=== PATIENT | female | born 1960 | race Caucasian/White ===

== ENCOUNTER 2016-02-24 22:13 | Emergency (ER) | payer OTHER ==
[2016-02-24 22:31] VITALS: TEMP 102.8; BMI 21.4
--- NOTE | 2016-02-24 23:27 | PDOC ---
History of Present Illness - General Chief Complaint: Cold Symptoms Stated Complaint: COUGH,WEAKNESS Time Seen by Provider: 02/24/16 23:12 History Source: Patient Exam Limitations: No Limitations - History of Present Illness Timing/Duration: reports: just prior to arrival Possible Cause: Yes: no prior episodes Associated Symptoms: reports: cough, fever/chills Past History - Travel Traveled outside of the country in the last 30 days: No Close contact w/someone who was outside of country & ill: No - Past Medical History Allergies/Adverse Reactions: Allergies Allergy/AdvReac Type Severity Reaction Status Date / Time No Known Allergies Allergy Verified 02/24/16 22:27 Home Medications: Ambulatory Orders Unobtainable [Unobtainable] 02/24/16 Anemia: No Diabetes: Yes Suicide Attempt (Hx): No - Immunization History Immunization Up to Date: No - Psycho/Social/Smoking Cessation Hx Anxiety: No Suicidal Ideation: No Smoking History: Never smoked Have you smoked in the past 12 months: No Number of Cigarettes Smoked Daily: 0 Information on smoking cessation initiated: No Hx Alcohol Use: No Drug/Substance Use Hx: No Substance Use Type: None Respiratory Specific PMHX - Complaint Specific PMHX Bronchitis: No Pneumonia: No Review of Systems - Review of Systems Able to Perform ROS?: Yes Comments:: 02/24/16 23:24 CONSTITUTIONAL: Absent: fever, chills, diaphoresis, generalized weakness, malaise, loss of appetite HEENT: Absent: rhinorrhea, nasal congestion, throat pain, throat swelling, difficulty swallowing, mouth swelling, ear pain, eye pain, visual Changes CARDIOVASCULAR: Absent: chest pain, loss of consciousness, palpitations, irregular heart rate, peripheral edema RESPIRATORY: +cough Absent: CONSTITUTIONAL: +fever, chills, Absent: diaphoresis, generalized weakness, malaise, loss of appetite HEENT: Absent: rhinorrhea, nasal congestion, throat pain, throat swelling, difficulty swallowing, mouth swelling, ear pain, eye pain, visual Changes CARDIOVASCULAR: Absent: chest pain, loss of consciousness, palpitations, irregular heart rate, peripheral edema RESPIRATORY: Absent: cough, shortness of breath, dyspnea with exertion, orthopnea, wheezing, stridor, hemoptysis GASTROINTESTINAL: Absent: abdominal pain, abdominal distension, nausea, vomiting, diarrhea, constipation, melena, hematochezia GENITOURINARY: Absent: dysuria, frequency, urgency, hesitancy, hematuria, flank pain, genital pain MUSCULOSKELETAL: Absent: myalgia, arthralgia, joint swelling SKIN: Absent: rash, itching, pallor HEMATOLOGIC/IMMUNOLOGIC: Absent: easy bleeding, easy bruising, lymphadenopathy, frequent infections ENDOCRINE: Absent: unexplained weight gain, unexplained weight loss, heat intolerance, cold intolerance NEUROLOGIC: Absent: headache, focal weakness or paresthesias, dizziness, unsteady gait, seizure, mental status changes, bladder or bowel incontinence PSYCHIATRIC: Absent: anxiety, depression, suicidal or homicidal ideation, hallucinations.shortness of breath, dyspnea with exertion, orthopnea, wheezing, stridor, hemoptysis Is the patient limited Hungarian proficient: No *Physical Exam - Vital Signs Last Vital Signs Temp Pulse Resp BP Pulse Ox 102.8 F H 98 H 14 128/70 95 02/24/16 22:29 02/24/16 22:29 02/24/16 22:29 02/24/16 22:29 02/24/16 22:29 - Physical Exam Comments: 02/24/16 23:26 GENERAL: Well developed, well nourished. Awake and alert. No acute distress. HEENT: Normocephalic, atraumatic. PERRLA, EOMI. No conjunctival pallor. Sclera are non- icteric. Moist mucous membranes. Oropharynx is clear. NECK: Supple. Full ROM. No JVD. Carotid pulses 2+ and symmetric, without bruits. No thyromegaly. No lymphadenopathy. CARDIOVASCULAR: Regular rate and rhythm. No murmurs, rubs, or gallops. Distal pulses are 2+ and symmetric. PULMONARY: No evidence of respiratory distress. Lungs clear to auscultation bilaterally. No wheezing, rales or rhonchi. ABDOMINAL: Soft. Non-tender. Non-distended. No rebound or guarding. No organomegaly. Normoactive bowel sounds. MUSCULOSKELETAL Normal range of motion at all joints. No bony deformities or tenderness. No CVA tenderness. EXTREMITIES: No cyanosis. No clubbing. No edema. No calf tenderness. SKIN: Warm and dry. Normal capillary refill. No rashes. No jaundice. NEUROLOGICAL: Alert, awake, appropriate. Cranial nerves 2-12 intact. No deficits to light touch and temperature in face, upper extremities and lower extremities. No motor deficits in the in face, upper extremities and lower extremities. Normoreflexic in the upper and lower extremities. Normal speech. Toes are down- going bilaterally. Gait is normal without ataxia. PSYCHIATRIC: Cooperative. Good eye contact. Appropriate mood and affect. ED Treatment Course - LABORATORY CBC & Chemistry Diagram: 02/24/16 23:30 02/24/16 23:30 - RADIOLOGY Radiograph Interpretation: 02/25/16 04:36 Exam: Noncontrast CT chest Images: 412 Clinical indication: Pulmonary nodule. Findings: Minimal dependent changes are noted. No other infiltrates, nodules or masses are seen. There is no axillary, mediastinal or hilar adenopathy. The heart is within limits for size. There is no pericardial or pleural effusion. The trachea and central bronchi are patent. The thoracic aorta and proximal great vessels have a normal appearance. The visualized upper abdominal viscera appear unremarkable. No lytic or blastic destructive osseous lesions are seen. Impression: No pulmonary or mass identified. THIS DOCUMENT HAS BEEN ELECTRONICALLY SIGNED Ricardo Arshad M.D. Progress Note - Progress Note Progress Note: 55-year-old female presents to the emergency department complaining of cough/ fever, nausea, anorexia 3 days. Patient denies any headache, dizziness, lightheadedness, sore throat, nasal congestion, rhinorrhea, chest pain, shortness of breath, abdominal discomfort, extremity numbness or tingling sensation. *DC/Admit/Observation/Transfer Diagnosis at time of Disposition: Influenza A, Hyperglycemia - Discharge Dispostion Disposition: HOME Condition at time of disposition: Improved Admit: No - Referrals Referrals: Koki Ayon MD [Primary Care Provider] - - Patient Instructions Printed Discharge Instructions: Influenza, DI for Hyperglycemia -- Adult Additional Instructions: Rest Increase fluids Follow up with your stone derrickman and rigger Return to the ER for severe/persistent/worsening symptoms
[2016-02-24] MEDS ORDERED: SODIUM CHLORIDE 1,000 ML IV STA (23:28)
[2016-02-24] MEDS ORDERED: IBUPROFEN 400 MG TABLET (FP) PO ONE (23:29)
[2016-02-24 23:53] LABS: BASOPHIL 0.4 % (0-2.0); MCH 27.3 pg (25.7-33.7); MEAN CELL VOLUME 82.8 fl (80-96); MEAN PLT VOLUME 9.3 fl (7.5-11.1); NEUTROPHILS 76.5 % (42.8-82.8); PLATELET COUNT 191 K/MM3 (134-434); RDW 13.5 % (11.6-15.6); WHITE BLOOD COUNT 9.8 K/mm3 (4.0-10.0)
[2016-02-24 23:58] LABS: URINE APPEARANCE CLEAR; URINE BILIRUBIN NEGATIVE (NEGATIVE); URINE COLOR STRAW; URINE GLUCOSE (UA) 3+ (NEGATIVE); URINE KETONE NEGATIVE (NEGATIVE); URINE LEUK ESTERASE NEGATIVE (NEGATIVE); URINE NITRITE NEGATIVE (NEGATIVE); URINE UROBILINOGEN NEGATIVE E.U./dl (0.2-1.0)
[2016-02-25 00:02] LABS: URINE BLOOD 1+ (NEGATIVE); URINE PROTEIN 2+ (NEGATIVE)
[2016-02-25 00:19] LABS: ALBUMIN 3.3 g/dl (3.4-5.0); ANION GAP 8 (8-16); BILIRUBIN,TOTAL 0.8 mg/dL (0.2-1.0); CALCIUM 8.6 mg/dL (8.5-10.1); CO2 29 mmol/L (21-32); CREATININE 0.8 mg/dL (0.55-1.02); SGOT/AST 18 U/L (15-37); SGPT/ALT 19 U/L (12-78)
[2016-02-25 00:20] LABS: ALK PHOS 100 U/L (45-117)
[2016-02-25 00:21] LABS: URINE RBC 3 /hpf (0-3); URINE WBC <1 /hpf (3-5)
[2016-02-25 00:25] LABS: GLUCOSE,RANDOM 396 mg/dL (74-106)
[2016-02-25] MEDS ORDERED: INSULIN REGULAR HUMAN 100 UNITS/ML *VIAL SQ ONE ×2 (00:43→02:46)
[2016-02-25] MEDS ORDERED: IBUPROFEN 400 MG TABLET (FP) PO ONE ×2 (00:50→00:55)
[2016-02-25] MEDS ORDERED: INSULIN REGULAR HUMAN 100 UNITS/ML *VIAL ONE (00:51)
[2016-02-25 05:03] VITALS: BP 118/70; PULSE 68
== END 2016-02-25 05:03 | disposition home or self-care (01) ==
LOC: JER 22:13
PROC: 3E0337Z Introduction of Electrolytic and Water Balance Substance into Peripheral Vein, Percutaneous Approach (ICD-10-PCS; principal; 2016-02-24)
PROC: 3E013VG Introduction of Insulin into Subcutaneous Tissue, Percutaneous Approach (ICD-10-PCS; 2016-02-24)
PROC: 3E013VG Introduction of Insulin into Subcutaneous Tissue, Percutaneous Approach (ICD-10-PCS; 2016-02-24)
DX: J09.X2 Influenza due to identified novel influenza A virus with other respiratory manifestations (principal); E11.65 Type 2 diabetes mellitus with hyperglycemia
CPT/HCPCS: 36415; 71020-TC; 71250-TC; 80053; 81003; 81015; 85025; 87804; 96360; 96372; 99282-25

== ENCOUNTER 2016-03-06 19:45 | Emergency (ER) | payer OTHER ==
[2016-03-06 20:08] VITALS: BP 147/76; PULSE 93; TEMP 98.6; BMI 20.5
--- NOTE | 2016-03-06 20:51 | PDOC ---
History of Present Illness - General History Source: Patient Exam Limitations: No Limitations - History of Present Illness Initial Comments: 03/06/16 20:54 The patient is a 55 year old female with past medical history of IDDM and hypertension who presents to the ED with complaints of flu symptoms which began 2 weeks ago. The patient was seen in the ED on 02/24/16 for fever, chills, and cough in which she was tested positive for the flu. She had a chest CT as well which was negative. She also reports nausea and loss of appetite. She describes the cough as productive and is producing yellow/green sputum. She reports that her symptoms have not worsened but have just persisted. She denies any vomiting or diarrhea. She denies any chest pain and shortness of breath. She denies any urinary symptoms. PCP: Koki Ayon <Misa Kapoor - Last Filed: 03/07/16 00:56> <Breanna Woodall - Last Filed: 03/07/16 02:42> - General Chief Complaint: Cold Symptoms Stated Complaint: RESPIRATORY Time Seen by Provider: 03/06/16 20:28 Past History <Misa Kapoor - Last Filed: 03/07/16 00:56> - Past Medical History Anemia: No Diabetes: Yes HTN: Yes Suicide Attempt (Hx): No - Immunization History Immunization Up to Date: No - Psycho/Social/Smoking Cessation Hx Anxiety: No Suicidal Ideation: No Smoking History: Never smoked Have you smoked in the past 12 months: No Number of Cigarettes Smoked Daily: 0 Hx Alcohol Use: No Drug/Substance Use Hx: No Substance Use Type: None <Breanna Woodall - Last Filed: 03/07/16 02:42> - Past Medical History Allergies/Adverse Reactions: Allergies Allergy/AdvReac Type Severity Reaction Status Date / Time No Known Allergies Allergy Verified 02/24/16 22:27 Home Medications: Ambulatory Orders Azithromycin [Zithromax -] 250 mg PO UTDICT #6 tab 03/07/16 Respiratory Specific PMHX - Complaint Specific PMHX Bronchitis: No Pneumonia: No <Breanna Woodall - Last Filed: 03/07/16 02:42> Review of Systems - Review of Systems Able to Perform ROS?: Yes Comments:: 03/06/16 20:54 CONSTITUTIONAL: Present: fever, chills Absent: diaphoresis, generalized weakness, malaise, loss of appetite HEENT: Absent: rhinorrhea, nasal congestion, throat pain, throat swelling, difficulty swallowing, mouth swelling, ear pain, eye pain, visual Changes CARDIOVASCULAR: Absent: chest pain, syncope, palpitations, irregular heart rate, lightheadedness , peripheral edema RESPIRATORY: Present: cough Absent: dyspnea with exertion, orthopnea, wheezing, stridor, hemoptysis GASTROINTESTINAL: Absent: abdominal pain, abdominal distension, nausea, vomiting, diarrhea, constipation, melena, hematochezia GENITOURINARY: Absent: dysuria, frequency, urgency, hesitancy, hematuria, flank pain, genital pain MUSCULOSKELETAL: Absent: myalgia, arthralgia, joint swelling SKIN: Absent: rash, itching, pallor HEMATOLOGIC/IMMUNOLOGIC: Absent: easy bleeding, easy bruising, lymphadenopathy, frequent infections ENDOCRINE: Absent: unexplained weight gain, unexplained weight loss, heat intolerance, cold intolerance NEUROLOGIC: Absent: headache, focal weakness or paresthesias, dizziness, unsteady gait, seizure, mental status changes, bladder or bowel incontinence PSYCHIATRIC: Absent: anxiety, depression, suicidal or homicidal ideation, hallucinations. All Other Systems: Reviewed and Negative <Misa Kapoor - Last Filed: 03/07/16 00:56> *Physical Exam - Vital Signs Last Vital Signs Temp Pulse Resp BP Pulse Ox 98.6 F 93 H 18 147/76 96 03/06/16 20:05 03/06/16 20:05 03/06/16 20:05 03/06/16 20:05 03/06/16 20:05 - Physical Exam Comments: 03/06/16 21:09 GENERAL: Frail appearing. Awake and alert. No acute distress. HEENT: Normocephalic, atraumatic. PERRLA, EOMI. No conjunctival pallor. Sclera are non- icteric. Moist mucous membranes. Oropharynx is clear. NECK: Supple. Full ROM. No JVD. Carotid pulses 2+ and symmetric, without bruits. No thyromegaly. No lymphadenopathy. CARDIOVASCULAR: Regular rate and rhythm. No murmurs, rubs, or gallops. Distal pulses are 2+ and symmetric. PULMONARY: Expiratory cough. No wheezing, rales or rhonchi. ABDOMINAL: Soft. Non-tender. Non-distended. No rebound or guarding. No organomegaly. Normoactive bowel sounds. MUSCULOSKELETAL Normal range of motion at all joints. No bony deformities or tenderness. No CVA tenderness. EXTREMITIES: No cyanosis. No clubbing. No edema. No calf tenderness. SKIN: Warm and dry. Normal capillary refill. No rashes. No jaundice. NEUROLOGICAL: Alert, awake, appropriate. Cranial nerves 2-12 intact. No deficits to light touch and temperature in face, upper extremities and lower extremities. No motor deficits in the in face, upper extremities and lower extremities. Normoreflexic in the upper and lower extremities. Normal speech. Toes are down-going bilaterally. Gait is normal without ataxia. PSYCHIATRIC: Cooperative. Good eye contact. Appropriate mood and affect. <Misa Kapoor - Last Filed: 03/07/16 00:56> - Vital Signs Last Vital Signs Temp Pulse Resp BP Pulse Ox 98.6 F 93 H 18 147/76 96 03/06/16 20:05 03/06/16 20:05 03/06/16 20:05 03/06/16 20:05 03/06/16 20:05 <Breanna Woodall - Last Filed: 03/07/16 02:42> ED Treatment Course - LABORATORY CBC & Chemistry Diagram: 03/06/16 22:20 03/06/16 22:20 <Misa Kapoor - Last Filed: 03/07/16 00:56> - LABORATORY CBC & Chemistry Diagram: 03/06/16 22:20 03/06/16 22:20 <Breanna Woodall - Last Filed: 03/07/16 02:42> Medical Decision Making - Medical Decision Making 03/07/16 01:02 55-year-old female diagnosed with influenza last week returns because of persistent coughing -She is an insulin-dependent diabetic and does have a history of peripheral neuropathies -Patient has no fever and she is not in any respiratory distress. She did not hypoxic or tachypneic Last week SHE HAD scan of the chest because of concern for nodule last week. There was no nodule seen ON CT CBC is unremarkable. Chemistries show hyperglycemia of 344. iT actually was higher last week -no ekg changes from prior ekg CXR NO INFILTRATES -spoke w pt and her sister about the elevated glucose. The pt needs to see her regular physician and work on tihgter glucose control -I gave her a albuterol tx to see if that helped her cough and it made her a bit more comfortable 03/07/16 02:37 <Breanna Woodall - Last Filed: 03/07/16 02:42> *DC/Admit/Observation/Transfer - Attestations Scribe Attestion: 03/06/16 21:09 Documentation prepared by Misa Kapoor, acting as medical laboratory technicians for Breanna Woodall MD/DO. <Misa Kapoor - Last Filed: 03/07/16 00:56> <Breanna Woodall - Last Filed: 03/07/16 02:42> Diagnosis at time of Disposition: Influenza A, Hyperglycemia, Cough - Discharge Dispostion Disposition: HOME Condition at time of disposition: Stable - Prescriptions Prescriptions: Azithromycin [Zithromax -] 250 mg PO UTDICT #6 tab - Referrals Referrals: Koki Ayon MD [Primary Care Provider] - - Patient Instructions Printed Discharge Instructions: DI for Cough -- Adult Additional Instructions: PLEASE [employer] CONSULTANT YOUR ANTIBIOTICS AT YOUR PHARMACY YOU NEED TO FOLLOW UP WITH YOUR REGULAR PHYSICIAN RETURN OF YOU HAVE ANY WORSENING SYMPTOMS
[2016-03-06] MEDS ORDERED: SODIUM CHLORIDE 1,000 ML IV STA (20:52)
[2016-03-06] MEDS ORDERED: LIDOCAINE HCL 1%, 10 MG/ML (20ML VIAL) ONE (22:00)
[2016-03-06 22:57] LABS: BASOPHIL 0.4 % (0-2.0); EOSINOPHIL 1.2 % (0-4.5); MCH 27.7 pg (25.7-33.7); MCHC 33.4 g/dl (32.0-36.0); MEAN CELL VOLUME 83.1 fl (80-96); MEAN PLT VOLUME 8.6 fl (7.5-11.1); NEUTROPHILS 75.1 % (42.8-82.8); PLATELET COUNT 391 K/MM3 (134-434); RDW 13.7 % (11.6-15.6); WHITE BLOOD COUNT 10.5 K/mm3 (4.0-10.0)
[2016-03-06 22:59] LABS: ALBUMIN 2.7 g/dl (3.4-5.0); ANION GAP 9 (8-16); CALCIUM 9.5 mg/dL (8.5-10.1); CO2 32 mmol/L (21-32); CREATININE 0.7 mg/dL (0.55-1.02); SGOT/AST 11 U/L (15-37); SGPT/ALT 10 U/L (12-78)
[2016-03-06 23:07] LABS: TROPONIN I < 0.02 ng/ml (0.00-0.05)
[2016-03-06 23:42] LABS: GLUCOSE,RANDOM 344 mg/dL (74-106)
[2016-03-07] MEDS ORDERED: ALBUTEROL SO4 0.083% IH SOL 2.5 MG/3 ML VIAL.NEB. NEB ONE ×2 (00:50→01:20)
[2016-03-07] MEDS ORDERED: AZITHROMYCIN 250 MG TABLET (FP) PO ONE (01:08)
[2016-03-07] MEDS ORDERED: AZITHROMYCIN 250 MG TABLET (FP) ONE (01:20)
[2016-03-07 09:14] LABS: ALK PHOS 96 U/L (45-117); BILIRUBIN,TOTAL 0.5 mg/dL (0.2-1.0); TOT PROT 6.7 g/dl (6.4-8.2)
--- NOTE | 2016-03-07 11:47 | EKG ---
Test Reason : Blood Pressure : / mmHG Vent. Rate : 089 BPM Atrial Rate : 089 BPM P-R Int : 148 ms QRS Dur : 082 ms QT Int : 346 ms P-R-T Axes : 041 -14 033 degrees QTc Int : 420 ms NORMAL SINUS RHYTHM POSSIBLE LEFT ATRIAL ENLARGEMENT BORDERLINE ECG WHEN COMPARED WITH ECG OF 06-MAR-2016 20:23, NO SIGNIFICANT CHANGE WAS FOUND Confirmed by EDSON GÓMEZ MD ([id number]) on 03/07/2016 11:47:21 AM Referred By: Confirmed By:EDSON GÓMEZ MD
--- NOTE | 2016-03-12 12:56 | EKG ---
Test Reason : Blood Pressure : / mmHG Vent. Rate : 089 BPM Atrial Rate : 089 BPM P-R Int : 146 ms QRS Dur : 082 ms QT Int : 358 ms P-R-T Axes : 050 -06 045 degrees QTc Int : 435 ms NORMAL SINUS RHYTHM POSSIBLE LEFT ATRIAL ENLARGEMENT BORDERLINE ECG WHEN COMPARED WITH ECG OF 26-JAN-2014 00:43, NO SIGNIFICANT CHANGE WAS FOUND Confirmed by SEUN GASPAR MD ([id number]) on 03/12/2016 12:56:41 PM Referred By: Confirmed By:SEUN GASPAR MD
== END 2016-03-07 02:23 | disposition home or self-care (01) ==
LOC: JER 19:45
PROC: 3E0F7GC Introduction of Other Therapeutic Substance into Respiratory Tract, Via Natural or Artificial Opening (ICD-10-PCS; principal; 2016-03-06)
PROC: 3E0337Z Introduction of Electrolytic and Water Balance Substance into Peripheral Vein, Percutaneous Approach (ICD-10-PCS; 2016-03-06)
DX: J09.X2 Influenza due to identified novel influenza A virus with other respiratory manifestations (principal); I10 Essential (primary) hypertension; E11.65 Type 2 diabetes mellitus with hyperglycemia
CPT/HCPCS: 36415; 71010-TC; 80053; 82550; 84484; 85025; 93005; 93010; 94640; 99281-25; 99282-25

== ENCOUNTER 2016-07-27 19:02 | Emergency (ER) | payer OTHER ==
[2016-07-27 19:20] VITALS: TEMP 97.8; BMI 23.3
--- NOTE | 2016-07-27 19:28 | PDOC ---
History of Present Illness - General Chief Complaint: Blood Sugar Problem Stated Complaint: SUGAR PROBLEM History Source: Patient Exam Limitations: No Limitations - History of Present Illness Initial Comments: 07/27/16 22:10 55-year-old female with a history of hypertension and NIDDM presents to the emergency department complaining of hyperglycemia. Patient states her glucose has been running between 400 and 500 since yesterday. She denies dizziness, lightheadedness, headaches, visual disturbance, chest pain, shortness of breath , abdominal pains, polydipsia, polyuria and polyphagia. Pt says she does not know the exact medication and has not been taking her medication. Timing/Duration: other (2d) Associated Symptoms: reports: denies symptoms Past History - Past Medical History Allergies/Adverse Reactions: Allergies Allergy/AdvReac Type Severity Reaction Status Date / Time No Known Allergies Allergy Verified 02/24/16 22:27 Home Medications: Ambulatory Orders Aspirin Coated [Ecotrin -] 81 mg PO DAILY 03/09/16 Calcium Carbonate/Vitamin D3 [Calcium 500 + Vit D3 400 Tab] 1 each PO DAILY Gabapentin [Neurontin -] 300 mg PO Q8H 03/09/16 Insulin (Levemir) [Levemir Vial] 17 unit SQ HS 03/09/16 Insulin (Levemir) [Levemir Vial] 23 unit SQ AM 03/09/16 Lisinopril [Prinivil] 20 mg PO DAILY 03/09/16 Metformin HCl [Metformin HCl ER] 1,000 mg PO BID 03/09/16 Anemia: No Diabetes: Yes HTN: Yes Suicide Attempt (Hx): No - Immunization History Immunization Up to Date: No - Psycho/Social/Smoking Cessation Hx Anxiety: No Suicidal Ideation: No Smoking History: Never smoked Have you smoked in the past 12 months: No Number of Cigarettes Smoked Daily: 0 Information on smoking cessation initiated: No Hx Alcohol Use: No Drug/Substance Use Hx: No Substance Use Type: None Review of Systems - Review of Systems Able to Perform ROS?: Yes Comments:: 07/27/16 22:09 CONSTITUTIONAL: Absent: fever, chills, diaphoresis, generalized weakness, malaise, loss of appetite HEENT: Absent: rhinorrhea, nasal congestion, throat pain, throat swelling, difficulty swallowing, mouth swelling, ear pain, eye pain, visual Changes CARDIOVASCULAR: Absent: chest pain, loss of consciousness, palpitations, irregular heart rate, peripheral edema RESPIRATORY: Absent: cough, shortness of breath, dyspnea with exertion, orthopnea, wheezing, stridor, hemoptysis GASTROINTESTINAL: Absent: abdominal pain, abdominal distension, nausea, vomiting, diarrhea, constipation, melena, hematochezia GENITOURINARY: Absent: dysuria, frequency, urgency, hesitancy, hematuria, flank pain, genital pain MUSCULOSKELETAL: Absent: myalgia, arthralgia, joint swelling SKIN: Absent: rash, itching, pallor HEMATOLOGIC/IMMUNOLOGIC: Absent: easy bleeding, easy bruising, lymphadenopathy, frequent infections ENDOCRINE: Absent: unexplained weight gain, unexplained weight loss, heat intolerance, cold intolerance NEUROLOGIC: Absent: headache, focal weakness or paresthesias, dizziness, unsteady gait, seizure, mental status changes, bladder or bowel incontinence PSYCHIATRIC: Absent: anxiety, depression, suicidal or homicidal ideation, hallucinations. Is the patient limited Bulgarian proficient: No *Physical Exam - Vital Signs Last Vital Signs Temp Pulse Resp BP Pulse Ox 97.8 F 94 H 18 148/86 10 L 07/27/16 19:17 07/27/16 19:17 07/27/16 19:17 07/27/16 19:17 07/27/16 19:17 - Physical Exam Comments: 07/27/16 22:10 GENERAL: Well developed, well nourished. Awake and alert. No acute distress. HEENT: Normocephalic, atraumatic. PERRLA, EOMI. No conjunctival pallor. Sclera are non- icteric. Moist mucous membranes. Oropharynx is clear. NECK: Supple. Full ROM. No JVD. Carotid pulses 2+ and symmetric, without bruits. No thyromegaly. No lymphadenopathy. CARDIOVASCULAR: Regular rate and rhythm. No murmurs, rubs, or gallops. Distal pulses are 2+ and symmetric. PULMONARY: No evidence of respiratory distress. Lungs clear to auscultation bilaterally. No wheezing, rales or rhonchi. ABDOMINAL: Soft. Non-tender. Non-distended. No rebound or guarding. No organomegaly. Normoactive bowel sounds. MUSCULOSKELETAL Normal range of motion at all joints. No bony deformities or tenderness. No CVA tenderness. EXTREMITIES: No cyanosis. No clubbing. No edema. No calf tenderness. SKIN: Warm and dry. Normal capillary refill. No rashes. No jaundice. NEUROLOGICAL: Alert, awake, appropriate. Cranial nerves 2-12 intact. No deficits to light touch and temperature in face, upper extremities and lower extremities. No motor deficits in the in face, upper extremities and lower extremities. Normoreflexic in the upper and lower extremities. Normal speech. Toes are down- going bilaterally. Gait is normal without ataxia. PSYCHIATRIC: Cooperative. Good eye contact. Appropriate mood and affect. ED Treatment Course - LABORATORY CBC & Chemistry Diagram: 07/27/16 19:35 07/27/16 19:35 *DC/Admit/Observation/Transfer Diagnosis at time of Disposition: lbme, Hyperglycemia - Discharge Dispostion Condition at time of disposition: Stable Admit: No - Referrals Referrals: Koki Ayon MD [Primary Care Provider] - - Patient Instructions Printed Discharge Instructions: DI for Hyperglycemia -- Adult, Exercising Caution When You Have Diabetes Additional Instructions: Return to the Er for severe/persistent/worsening symptoms As per our discussion, it is important that you eat properly and take your medication. It is important for you to follow up with your reservation clerk and your physician
[2016-07-27 19:48] LABS: BASOPHIL 0.2 % (0-2.0); EOSINOPHIL 0.8 % (0-4.5); MCH 27.4 pg (25.7-33.7); MCHC 32.6 g/dl (32.0-36.0); MEAN PLT VOLUME 9.4 fl (7.5-11.1); NEUTROPHILS 68.2 % (42.8-82.8); PLATELET COUNT 219 K/MM3 (134-434); RDW 13.8 % (11.6-15.6); WHITE BLOOD COUNT 6.8 K/mm3 (4.0-10.0)
[2016-07-27 20:14] LABS: ALBUMIN 3.5 g/dl (3.4-5.0); ALK PHOS 140 U/L (45-117); ANION GAP 6 (8-16); BILIRUBIN,TOTAL 0.9 mg/dL (0.2-1.0); CALCIUM 9.4 mg/dL (8.5-10.1); CO2 30 mmol/L (21-32); COCKROFT - GAULT 77.3755; CREATININE 0.8 mg/dL (0.55-1.02); SGOT/AST 14 U/L (15-37); SGPT/ALT 20 U/L (12-78); TOT PROT 7.2 g/dl (6.4-8.2)
[2016-07-27 20:16] LABS: GLUCOSE,RANDOM 370 mg/dL (74-106)
[2016-07-27 20:47] LABS: URINE APPEARANCE CLEAR; URINE BILIRUBIN NEGATIVE (NEGATIVE); URINE COLOR STRAW; URINE GLUCOSE (UA) 3+ (NEGATIVE); URINE KETONE NEGATIVE (NEGATIVE); URINE LEUK ESTERASE NEGATIVE (NEGATIVE); URINE NITRITE NEGATIVE (NEGATIVE); URINE UROBILINOGEN NEGATIVE E.U./dl (0.2-1.0)
[2016-07-27 21:02] LABS: URINE BLOOD 1+ (NEGATIVE); URINE PROTEIN 1+ (NEGATIVE)
[2016-07-27 21:08] LABS: URINE MUCUS RARE; URINE RBC <1 /hpf (0-3); URINE WBC 1 /hpf (3-5)
[2016-07-27] MEDS ORDERED: INSULIN REGULAR HUMAN 100 UNITS/ML *VIAL IVPUSH ONE (22:06)
[2016-07-27] MEDS ORDERED: INSULIN REGULAR HUMAN 100 UNITS/ML *VIAL ONE (22:10)
[2016-07-28 00:07] VITALS: BP 145/85; PULSE 84
== END 2016-07-28 00:35 | disposition home or self-care (01) ==
LOC: JER 19:02
PROC: 3E013VG Introduction of Insulin into Subcutaneous Tissue, Percutaneous Approach (ICD-10-PCS; principal; 2016-07-27)
DX: E11.65 Type 2 diabetes mellitus with hyperglycemia (principal); I10 Essential (primary) hypertension; Z79.4 Long term (current) use of insulin; Z79.82 Long term (current) use of aspirin; Z79.84 Long term (current) use of oral hypoglycemic drugs
CPT/HCPCS: 36415; 80053; 81003; 81015; 85025; 99282-25

== ENCOUNTER 2017-06-10 02:15 | Emergency (ER) | payer OTHER ==
[2017-06-10 03:04] VITALS: BMI 26.1
[2017-06-10 03:39] LABS: BASO % 0.3 % (0-2.0); EOS % 2.2 % (0-4.5); HEMATOCRIT 35.5 % (32.4-45.2); HEMOGLOBIN 12.1 GM/dL (10.7-15.3); LYMPH % 21.1 % (8-40); MCH 28.8 pg (25.7-33.7); MCHC 34.2 g/dl (32.0-36.0); MEAN CELL VOLUME 84.3 fl (80-96); MEAN PLT VOLUME 9.7 fl (7.5-11.1); MONO % 6.4 % (3.8-10.2); PLATELET COUNT 219 K/MM3 (134-434); RBC 4.21 M/mm3 (3.60-5.2); RDW 13.7 % (11.6-15.6); WHITE BLOOD COUNT 7.6 K/mm3 (4.0-10.0)
--- NOTE | 2017-06-10 04:11 | PDOC ---
History of Present Illness - General Chief Complaint: Vaginal Sxs Stated Complaint: VAGINAL BLEEDING Time Seen by Provider: 06/10/17 03:14 History Source: Patient Exam Limitations: No Limitations - History of Present Illness Initial Comments: 06/10/17 04:04 Patient is a 56-year-old female with history of fibroid, HTN, DM c/o vaginal bleeding since yesterday intermittently. States would bleed heavy then stop. States she bled this morning, spotted but last night has lot of bleeding, (+) clots. Denies any abd pain, pelvic pain, dizziness, FRANK, sob. Last time PAP 2 years ago. States has not had a period in 3 years. PMD: Dr. Chacon PMHX: PSOCHX: neg etoh, durg, cig ALL: NKDA GENERAL/CONSTITUTIONAL: [No fever or chills. No weakness. No weight change.] HEAD, EYES, EARS, NOSE AND THROAT: [No change in vision. No ear pain or discharge. No sore throat.] CARDIOVASCULAR: [No chest pain or shortness of breath.] RESPIRATORY: [No cough, wheezing, or hemoptysis.] GASTROINTESTINAL: [No nausea, vomiting, diarrhea or constipation. No rectal bleeding.] GENITOURINARY: [No dysuria, frequency, or change in urination.] MUSCULOSKELETAL: [No joint or muscle swelling or pain. No neck or back pain.] SKIN AND BREASTS: [No rash or easy bruising.] NEUROLOGIC: [No headache, vertigo, loss of consciousness, or loss of sensation.] PSYCHIATRIC: [No depression or anxiety.] ENDOCRINE: [No increased thirst. No abnormal weight change.] HEMATOLOGIC/LYMPHATIC: [No anemia, easy bleeding, or history of blood clots.] ALLERGIC/IMMUNOLOGIC: [No hives or skin allergy. No latex allergy.] GENERAL: [The patient is awake, alert, and fully oriented, in no acute distress. ] HEAD: [Normal with no signs of trauma.] EYES: [Pupils equal, round and reactive to light, extraocular movements intact, sclera anicteric, conjunctiva clear.] ENT: [Ears normal, nares patent, oropharynx clear without exudates. Moist mucous membranes.] NECK: [Normal range of motion, supple without lymphadenopathy, JVD, or masses.] LUNGS: [Breath sounds equal, clear to auscultation bilaterally. No wheezes, and no crackles.] HEART: [Regular rate and rhythm, normal S1 and S2 without murmur, rub.] ABDOMEN: [Soft, nontender, normoactive bowel sounds. No guarding, no rebound. (+) large irregular firm mass most on the right just above the umbilicus. RECTAL: no fissures, no bleeding EXTREMITIES: [Normal range of motion, no edema. No clubbing or cyanosis. No cords, erythema, or tenderness.] NEUROLOGICAL: [Cranial nerves II through XII grossly intact. Normal speech, normal gait.] PSYCH: [Normal mood, normal affect.] SKIN: [Warm, Dry, normal turgor, no rashes or lesions noted.] Past History - Past Medical History Allergies/Adverse Reactions: Allergies Allergy/AdvReac Type Severity Reaction Status Date / Time No Known Allergies Allergy Verified 06/10/17 03:03 Home Medications: Ambulatory Orders Aspirin Coated [Ecotrin -] 81 mg PO DAILY 03/09/16 Calcium Carbonate/Vitamin D3 [Calcium 500 + Vit D3 400 Tab] 1 each PO DAILY Gabapentin [Neurontin -] 600 mg PO BID 03/09/16 Insulin (Levemir) [Levemir Vial] 17 unit SQ HS 03/09/16 Insulin (Levemir) [Levemir Vial] 23 unit SQ AM 03/09/16 Lisinopril [Prinivil] 20 mg PO DAILY 03/09/16 Metformin HCl [Metformin HCl ER] 1,000 mg PO DAILY 03/09/16 Furosemide [Lasix] 20 mg PO DAILY 06/10/17 Simvastatin 20 mg PO DAILY 06/10/17 Anemia: No Diabetes: Yes HTN: Yes - Immunization History Immunization Up to Date: No - Suicide/Smoking/Psychosocial Hx Smoking History: Never smoked Have you smoked in the past 12 months: No Number of Cigarettes Smoked Daily: 0 Information on smoking cessation initiated: No Hx Alcohol Use: No Drug/Substance Use Hx: No Substance Use Type: None *Physical Exam - Vital Signs Last Vital Signs Temp Pulse Resp BP Pulse Ox 97.8 F 97 H 19 178/100 98 06/10/17 03:01 06/10/17 03:01 06/10/17 03:01 06/10/17 03:01 06/10/17 03:01 ED Treatment Course - LABORATORY CBC & Chemistry Diagram: 06/10/17 03:30 - ADDITIONAL ORDERS Additional order review: 06/10/17 03:30 RBC 4.21 MCV 84.3 MCHC 34.2 RDW 13.7 MPV 9.7 Neutrophils % 70.0 Lymphocytes % 21.1 Monocytes % 6.4 Eosinophils % 2.2 D Basophils % 0.3 Medical Decision Making - Medical Decision Making 06/10/17 04:04 Patient is a 56-year-old female with history of fibroid, c/o vaginal bleeding since yesterday intermittently. possible menopause since she has not seen a period in 3 years. will check h/h, UA but will need to follow up with [facility] DEVELOPMENT [facility]NAGER for further eval. labs reviewed not acute findings I discussed the physical exam findings, ancillary test results and final diagnoses with the patient. I answered all of the patient's questions. The patient was satisfied with the care received and felt comfortable with the discharge plan and treatment plan. The Patient agrees to follow up with the primary care physician within 24-72 hours. *DC/Admit/Observation/Transfer Diagnosis at time of Disposition: Postmenopausal vaginal bleeding - Discharge Dispostion Disposition: HOME Condition at time of disposition: Stable - Referrals Referrals: Koki Ayon MD [Primary Care Provider] - Al Hernandez MD [Staff Physician] - - Patient Instructions Printed Discharge Instructions: DI for Vaginal Bleeding Additional Instructions: Your Discharge Instructions: You must call primary care physician within 24 hours to arrange follow-up. Return to the Emergency Department with any new, persistent or worsening symptoms, for fever, chills, SOB, dizziness or any other concerning changes that may occur. He must follow-up with [facility] AND DEVELOPMENT MANAGER immediately to further investigate the vaginal bleeding. - Post Discharge Activity
[2017-06-10 04:21] LABS: URINE APPEARANCE CLEAR; URINE BILIRUBIN NEGATIVE (<2.0 mg/dL); URINE BLOOD 2+ (NEGATIVE); URINE COLOR LTYELLOW; URINE GLUCOSE (UA) 3+ (NEGATIVE); URINE KETONE TRACE (NEGATIVE); URINE LEUK ESTERASE NEGATIVE (NEGATIVE); URINE NITRITE NEGATIVE (NEGATIVE); URINE PROTEIN 2+ (NEGATIVE); URINE UROBILINOGEN NEGATIVE mg/dL (0.2-1.0)
[2017-06-10 04:25] LABS: EPI CELLS RARE /HPF (FEW); URINE BACTERIA FEW /hpf (NONE SEEN); URINE MUCUS RARE
[2017-06-10 05:08] VITALS: BP 162/84; PULSE 83; TEMP 98
== END 2017-06-10 05:17 | disposition home or self-care (01) ==
LOC: JER 02:18
DX: N95.0 Postmenopausal bleeding (principal); D25.9 Leiomyoma of uterus, unspecified; I10 Essential (primary) hypertension; E11.9 Type 2 diabetes mellitus without complications; Z79.4 Long term (current) use of insulin
CPT/HCPCS: 36415; 81003; 81015; 85025; 99283-25

== ENCOUNTER 2017-12-12 13:33 | Emergency (ER) | payer OTHER ==
[2017-12-12 13:50] VITALS: BMI 27.1
[2017-12-12] MEDS ORDERED: FUROSEMIDE 40 MG/4 ML INJECTABLE VIAL IVPUSH ONE (14:45)
--- NOTE | 2017-12-12 14:55 | PDOC ---
History of Present Illness - General Chief Complaint: Edema Stated Complaint: SWOLLEN LEGS Time Seen by Provider: 12/12/17 14:42 - History of Present Illness Initial Comments: Cherri Haq is a 57yo woman with a PMH of uncontrolled IDDM, HTN, uterine fibroids who presents today reporting LLE edema. She states that she saw her PMD one month ago and was referred to the ED due to the LLE edema, LLE erythema , and a toe wound that appeared to be an infected diabetic foot ulcer. For unclear reasons, she did not present to the ED until today. She reports that the toe wound has resolved over the past month; she was given antibiotics, and it cleared up completely. She also notes that her leg is no longer red. However , she does feel that the swelling is worse. Ms Haq reports that she previously received 5 lasix tablets that helped "a lot" with the swelling, but she never went back to her doctor for an additional prescription. She has never tried compression stockings or elevation for her edema. She has noticed that the swelling is better in the morning and worsens throughout the day. She reports that she is compliant with her insulin at home, but it appears that she does not take any additional medications. She checks her glucose in the morning and it is usually in the 70's or 80's. She does not watch her diet throughout the day, and she states that her glucose is generally in the 300's in the evening. Ms Haq says that she is otherwise feeling well. She denies any recent fevers , chills, chest pain, SOB, n/v, change in bowel habits, or urinary symptoms. She does note continued peripheral neuropathy in a stocking-glove pattern as well as JACOBS when walking more than a few blocks, but these have not worsened recently. Past History - Past Medical History Allergies/Adverse Reactions: Allergies Allergy/AdvReac Type Severity Reaction Status Date / Time No Known Allergies Allergy Verified 06/10/17 03:03 Home Medications: Ambulatory Orders Aspirin Coated [Ecotrin -] 81 mg PO DAILY 03/09/16 Calcium Carbonate/Vitamin D3 [Calcium 500 + Vit D3 400 Tab] 1 each PO DAILY Gabapentin [Neurontin -] 600 mg PO BID 03/09/16 Insulin (Levemir) [Levemir Vial] 17 unit SQ HS 03/09/16 Insulin (Levemir) [Levemir Vial] 23 unit SQ AM 03/09/16 Lisinopril [Prinivil] 20 mg PO DAILY 03/09/16 Metformin HCl [Metformin HCl ER] 1,000 mg PO DAILY 03/09/16 Furosemide [Lasix] 20 mg PO DAILY 06/10/17 Simvastatin 20 mg PO DAILY 06/10/17 Furosemide [Lasix -] 40 mg PO DAILY #7 tablet 12/12/17 Anemia: No COPD: No Diabetes: Yes HTN: Yes - Immunization History Immunization Up to Date: No - Suicide/Smoking/Psychosocial Hx Smoking History: Never smoked Have you smoked in the past 12 months: No Number of Cigarettes Smoked Daily: 0 Information on smoking cessation initiated: No Hx Alcohol Use: No Drug/Substance Use Hx: No Substance Use Type: None Review of Systems - Review of Systems Comments:: General: No fevers, no chills, no weight or appetite change, no malaise HEENT: No changes in vision, no changes in hearing, no congestion, no sore throat CV: No chest pain, no palpitations. +BLE edema, L>R. Pulm: No SOB, no cough, no wheezing GI: No nausea or vomiting, no change in bowel habits, no melena : No frequency, no urgency, no dysuria Musc: No back pain, no joint swelling, no recent injury Skin: No rash, no lesions, no erythema Endo: No excessive thirst, no heat/cold intolerance Heme: No unusual bruising or bleeding, no swollen glands Neuro: No syncope, +Peripheral neuropathy, no focal weakness Vasc: No claudication Psych: No recent change in mood, no SI or HI *Physical Exam - Vital Signs Last Vital Signs Temp Pulse Resp BP Pulse Ox 97.6 F 79 17 207/99 H 100 12/12/17 13:48 12/12/17 13:48 12/12/17 13:48 12/12/17 13:48 12/12/17 13:48 - Physical Exam Comments: General: Comfortable, no acute distress HEENT: PERRL, EOMI, MMM, voice normal, normal neck ROM, no LAD Cards: RRR, no murmur appreciated Pulm: Comfortable on room air, clear to auscultation bilaterally Abd: Soft, nontender, nondistended : No CVA tenderness Ext: Atraumatic. ROM intact. Strength 5/5 and equal bilaterally RLE - 2+ pitting edema, dry flaking skin on foot, no rash/lesion/erythema. Onychomycosis in all nails LLE - 4+ pitting edema, dry skin on foot, onychomycosis. No wounds, no erythema, no rash, no lesions noted. Vasc: Extremities WWP. Palpable radial and pedal pulses bilaterally Skin: Normal color, no rashes or lesions Neuro: A&Ox3, CN grossly intact, normal speech, Sensation to light touch diminished on b/l feet. Motor grossly intact and symmetric Psych: Mood appropriate to situation ED Treatment Course - LABORATORY CBC & Chemistry Diagram: 12/12/17 16:00 12/12/17 16:00 - RADIOLOGY Radiology Studies Ordered: Category Date Time Status CHEST PA & LAT [RAD] Stat Radiology 12/12/17 14:43 Ordered DUPLEX VASCUL US-1 LEG [US] Stat Ultrasound 12/12/17 14:43 Ordered Medical Decision Making - Medical Decision Making 12/12/17 15:30 Cherri Haq is a 57yo woman with a PMH of uncontrolled DM, HTN, uterine fibroids who presents with B/L, L>R lower extremity edema. She reports that she was referred to the ED one month ago for a left foot wound, LLE erythema, and suspected infection, but these have resolved. - Lower extremity edema appears to be chronic, per patient report. LLE duplex ordered to r/o DVT. 40mg IV lasix given for diuresis. - CBC to rule out sign of occult skin infection - CMP to r/o abnormalities in the setting of uncontrolled DM - EKG, trop to r/o ACS as the cause of worsening edema - CXR to evaluate for underlying cardiomegaly, fluid overload - HTN on arrival. Will recheck vitals. If still hypertensive, may need additional medication. 12/12/17 16:32 - DVT study negative - Labs pending - Repeat BP unchanged. 0.3mg clonidine patch ordered 12/12/17 16:50 - Labs notable only for CK 215. CK index pending - Most likely will discharge home to follow up with her PMD within the next few days. No concern for infection, and thrombus has been ruled out as a cause of the swelling. 12/12/17 19:35 - BP still 199/97 after lasix and applying clonidine patch - On additional questioning, Ms Haq reports not taking her home medications today - Will order home lisinopril and recheck BP in one hour - If BP downtrending, will d/c home. 12/12/17 20:47 - BP still 196/101 - 10mg IV hydralazine ordered 12/12/17 21:56 - Repeat BP 147/70, rechecked at 133/68 - Discharge home - Discussed importance of making a follow up with her PMD on Saturday or Saturday of next week. Discussed use of compression stockings and leg elevation. Prescribed 7 days of lasix. Ms Haq is aware that she will need to follow up with her PMD for another prescription. - Ms Haq understands and agrees with the plan to discharge home. She will follow up with her PMD next week. She states understanding of her return precautions. Seen and discussed with Dr Mckeon and Dr Rushing. Kindra Vu PGY1 *DC/Admit/Observation/Transfer Diagnosis at time of Disposition: Peripheral edema - Discharge Dispostion Disposition: HOME Condition at time of disposition: Stable - Prescriptions Prescriptions: Furosemide [Lasix -] 40 mg PO DAILY #7 tablet - Referrals Referrals: Koki Ayon MD [Primary Care Provider] - - Patient Instructions Printed Discharge Instructions: DI for Dependent Edema Additional Instructions: Discharge Instructions: - You were seen in the ED for leg swelling - Your blood tests and physical exam showed no sign of infection, and you had an ultrasound of your legs that showed no sign of any blood clots - For your swelling, you should buy compression stockings at any pharmacy. These should be worn during the day while you are up walking around - Elevate your legs above the level of your heart as much as possible - Make an appointment with your regular doctor within the next 1-2 days for follow up. You will probably need to start your furosemide (diruretic, water pill) at home again to help with your swelling and blood pressure - You were given a medication patch to help lower your blood pressure. This should stay in place for 7 days or until you see your regular doctor. - Seek immediate medical attention if your legs develop open, draining sores along with a high fever (101F or higher), you have chest pain or you have sudden shortness of breath. - Post Discharge Activity
--- NOTE | 2017-12-12 15:15 | PDOC ---
Attending Attestation - HPI HPI: 12/12/17 16:17 CC: Left lower extremity edema HPI: The patient is a 57 year old female, with a significant past medical history of uncontrolled IDDM, HTN, uterine fibroids, who presents to the emergency department with, LLE edema. As per patient, a month ago her doctor advised her to report to the ED for LE edema, LLE erythema, and a toe wound, however, she failed to report. She notes the infection has cleared up with PO antibiotics, however, her swelling has worsened. Patient notes taking 5 Lasix which, she notes has helped significantly. She denies recent chest pain or shortness of breath. Allergies: NKDA Primary Care Physician: Dr. Ayon - Physicial Exam PE: 12/12/17 16:17 Exam: Vitals: Triage Vital signs reviewed General Appearance: no acute distress, well nourished well developed, Head: Atraumatic, normocephalic Neck: Supple;No Nuchal rigidity Chest Wall: Nontender Cardiac: Regular rate and rhythm, no murmurs, no rubs, no gallops, Lungs: Clear to auscultation bilateral, good air movement bilaterally, Abdomen: Soft, nondistended, normal bowel sounds, nontender to palpation Rectal: Exam deferred +Extremities:Bilateral lower extremity edema L>R. Full range of motion to all extremities. Skin: Warm and dry, no rashes or lesions, no petechiae Neuro: AOX3; Cranial Nerves 2-12 grossly intact, Strength intact to all extremities, Sensation intact to all extremities Psych: normal mood, normal affect - Medical Decision Making 12/12/17 16:17 57 year old female with history of uncontrolled IDDM, HTN, uterine fibroids presents to the ED with bilateral lower extremity edema. Plan: EKG Cardiac profile Lasix Chest x-ray <Sowmya Petersen - Last Filed: 12/12/17 16:16> - Resident Resident Name: Kindra Vu - ED Attending Attestation I have performed the following: I have examined & evaluated the patient, The case was reviewed & discussed with the resident, I agree w/resident's findings & plan, Exceptions are as noted - Medical Decision Making Noncompliant with hypertensive and antidiuretic medications presents with pedal edema We'll treat blood pressure diurese observe and reassess Dr. Rushing to review labs and dispo <Lupillo Mckeon - Last Filed: 12/13/17 13:32> Attestations - Attestations 12/12/17 16:18 Documentation prepared by Sowmya Petersen, acting as anesthesiology medical doctor for Lupillo Mckeon MD. <Sowmya Petersen - Last Filed: 12/12/17 16:16>
[2017-12-12 16:07] LABS: BASO % 0.4 % (0-2.0); EOS % 4.2 % (0-4.5); HEMATOCRIT 39.9 % (32.4-45.2); LYMPH % 28.5 % (8-40); MCH 27.6 pg (25.7-33.7); MCHC 32.7 g/dl (32.0-36.0); MEAN CELL VOLUME 84.4 fl (80-96); MEAN PLT VOLUME 9.8 fl (7.5-11.1); MONO % 8.3 % (3.8-10.2); NEUT % 58.6 % (42.8-82.8); PLATELET COUNT 226 K/MM3 (134-434); RBC 4.73 M/mm3 (3.60-5.2); RDW 14.9 % (11.6-15.6); WHITE BLOOD COUNT 5.3 K/mm3 (4.0-10.0)
[2017-12-12] MEDS ORDERED: FUROSEMIDE 40 MG/4 ML INJECTABLE VIAL ONE (16:12)
[2017-12-12 16:39] LABS: ALK PHOS 134 U/L (45-117); ANION GAP 7 MMOL/L (8-16); BILIRUBIN,TOTAL 0.6 mg/dL (0.2-1); BLOOD UREA NITROGEN 14 mg/dL (7-18); CHLORIDE 103 mmol/L (98-107); CO2 31 mmol/L (21-32); CREATININE 0.7 mg/dL (0.55-1.3); GLUCOSE,RANDOM 150 mg/dL (74-106); SGOT/AST 25 U/L (15-37); SGPT/ALT 29 U/L (13-61); SODIUM 141 mmol/L (136-145); TOT PROT 7.4 g/dl (6.4-8.2)
[2017-12-12 19:29] VITALS: TEMP 97.7
[2017-12-12] MEDS ORDERED: LISINOPRIL 20 MG TABLET (FP) PO ONE (19:34)
[2017-12-12] MEDS ORDERED: LISINOPRIL 20 MG TABLET (FP) ONE (20:06)
[2017-12-12] MEDS ORDERED: hydrALAZINE HCL 20 MG/ML VIAL IVPUSH ONE (20:47)
[2017-12-12] MEDS ORDERED: hydrALAZINE HCL 20 MG/ML VIAL ONE (21:25)
[2017-12-12 21:57] VITALS: PULSE 85
[2017-12-12 21:58] VITALS: BP 153/68
--- NOTE | 2017-12-13 09:39 | EKG ---
Test Reason : Blood Pressure : / mmHG Vent. Rate : 078 BPM Atrial Rate : 078 BPM P-R Int : 172 ms QRS Dur : 076 ms QT Int : 378 ms P-R-T Axes : 047 -10 061 degrees QTc Int : 430 ms POOR DATA QUALITY, INTERPRETATION MAY BE ADVERSELY AFFECTED NORMAL SINUS RHYTHM POSSIBLE LEFT ATRIAL ENLARGEMENT CANNOT RULE OUT ANTERIOR INFARCT , AGE UNDETERMINED ABNORMAL ECG Confirmed by MAIRA ALEXANDER MD ([id number]) on 12/13/2017 9:39:30 AM Referred By: Confirmed By:MAIRA ALEXANDER MD
[2017-12-19] MEDS ORDERED: cloNIDine-TTS 0.3 MG /24 HRS PATCH.TDWK TD SCH (10:00)
[2017-12-19] MEDS ORDERED: cloNIDine-TTS 0.3 MG /24 HRS PATCH.TDWK TD ONE (17:01)
== END 2017-12-12 22:32 | disposition home or self-care (01) ==
LOC: JER 13:33
PROC: 3E033GC Introduction of Other Therapeutic Substance into Peripheral Vein, Percutaneous Approach (ICD-10-PCS; principal; 2017-12-12)
PROC: 3E033GC Introduction of Other Therapeutic Substance into Peripheral Vein, Percutaneous Approach (ICD-10-PCS; 2017-12-12)
DX: R60.0 Localized edema (principal); G62.9 Polyneuropathy, unspecified; E11.65 Type 2 diabetes mellitus with hyperglycemia; Z79.4 Long term (current) use of insulin; I10 Essential (primary) hypertension; Z86.2 Personal history of diseases of the blood and blood-forming organs and certain disorders involving the immune mechanism
CPT/HCPCS: 36415; 71046-TC-FY; 80053; 82550; 82553; 84484; 85025; 93005; 93010; 93971-TC; 99282-25

== ENCOUNTER 2018-03-03 02:03 | Emergency (ER) | payer OTHER ==
[2018-03-03 02:46] VITALS: BMI 25.2
[2018-03-03] MEDS ORDERED: ONDANSETRON 4 MG/2 ML VIAL IVPUSH ONE (03:36)
[2018-03-03] MEDS ORDERED: SODIUM CHLORIDE 0.9% 500 ML INFUS.BAG IV ONE ×2 (03:36→06:12)
[2018-03-03] MEDS ORDERED: ALBUTEROL SO4 2.5/IPRATROPIUM 0.5 INH SOL 3 ML VIAL.NEB. NEB ONE ×2 (03:39→04:54)
[2018-03-03] MEDS ORDERED: KETOROLAC TROMETHAMINE 30 MG/1 ML VIAL IVPUSH ONE (04:36)
--- NOTE | 2018-03-03 04:48 | PDOC ---
History of Present Illness - General Chief Complaint: Lightheaded Stated Complaint: FATIGUE/DIZZINESS Time Seen by Provider: 03/03/18 03:26 History Source: Patient Exam Limitations: No Limitations - History of Present Illness Initial Comments: 03/03/18 04:40 Patient is a 57-year-old female with history of DM, HTN, neuropathy, fibroid uterus, c/o lower abd/suprapubic pain, dysuria, frequency associated with 4 days, nausea, vomiting, fever, weakness and shortness of breath - (described as cant breath through the nose). He described as an aching in the suprapubic area and burning pain on urination, which is 8/10, with frequency. Also c/o cough and sob with coughing. PMD: MARIErPina Agarwal PMHX: as above PSOCHX: neg etoh, drug, cig ALL: NKDA GENERAL/CONSTITUTIONAL: (+) fever or chills. (+) weakness. No weight change.] HEAD, EYES, EARS, NOSE AND THROAT: [No change in vision. No ear pain or discharge. No sore throat.] CARDIOVASCULAR: [No chest pain or shortness of breath.] RESPIRATORY: [No cough, wheezing, or hemoptysis.] GASTROINTESTINAL: [No nausea, vomiting, diarrhea or constipation. No rectal bleeding.] GENITOURINARY: (+) dysuria, frequency, or change in urination.] MUSCULOSKELETAL: [No joint or muscle swelling or pain. No neck or back pain.] SKIN AND BREASTS: [No rash or easy bruising.] NEUROLOGIC: [No headache, vertigo, loss of consciousness, or loss of sensation.] PSYCHIATRIC: [No depression or anxiety.] ENDOCRINE: [No increased thirst. No abnormal weight change.] HEMATOLOGIC/LYMPHATIC: [No anemia, easy bleeding, or history of blood clots.] ALLERGIC/IMMUNOLOGIC: [No hives or skin allergy. No latex allergy.] GENERAL: [The patient is awake, alert, and fully oriented, in mild distress.] HEAD: [Normal with no signs of trauma.] EYES: [Pupils equal, round and reactive to light, extraocular movements intact, sclera anicteric, conjunctiva clear.] ENT: [Ears normal, nares patent, oropharynx clear without exudates. Moist mucous membranes.] NECK: [Normal range of motion, supple without lymphadenopathy, JVD, or masses.] LUNGS: [Breath sounds equal, clear to auscultation bilaterally. No wheezes, and no crackles.] HEART: [Regular rate and rhythm, normal S1 and S2 without murmur, rub.] ABDOMEN: [Soft, (+) large fibroid, (+) tenderness suprapubic, normoactive bowel sounds. No guarding, no rebound. No masses.] EXTREMITIES: [Normal range of motion, no edema. No clubbing or cyanosis. No cords, erythema, or tenderness.] NEUROLOGICAL: [Cranial nerves II through XII grossly intact. Normal speech, normal gait.] PSYCH: [Normal mood, normal affect.] SKIN: [Warm, Dry, normal turgor, no rashes or lesions noted.] 03/03/18 07:10 Past History - Past Medical History Allergies/Adverse Reactions: Allergies Allergy/AdvReac Type Severity Reaction Status Date / Time No Known Allergies Allergy Verified 03/03/18 02:46 Home Medications: Ambulatory Orders Aspirin Coated [Ecotrin -] 81 mg PO DAILY 03/09/16 Calcium Carbonate/Vitamin D3 [Calcium 500 + Vit D3 400 Tab] 1 each PO DAILY Gabapentin [Neurontin -] 600 mg PO BID 03/09/16 Insulin (Levemir) [Levemir Vial] 17 unit SQ HS 03/09/16 Insulin (Levemir) [Levemir Vial] 23 unit SQ AM 03/09/16 Lisinopril [Prinivil] 20 mg PO DAILY 03/09/16 metFORMIN HCL [Metformin HCl ER] 1,000 mg PO DAILY 03/09/16 Furosemide [Lasix] 20 mg PO DAILY 06/10/17 Simvastatin 20 mg PO DAILY 06/10/17 Furosemide [Lasix -] 40 mg PO DAILY #7 tablet 12/12/17 Anemia: No COPD: No Diabetes: Yes HTN: Yes - Immunization History Immunization Up to Date: No - Suicide/Smoking/Psychosocial Hx Smoking History: Never smoked Have you smoked in the past 12 months: No Number of Cigarettes Smoked Daily: 0 Information on smoking cessation initiated: No Hx Alcohol Use: No Drug/Substance Use Hx: No Substance Use Type: None *Physical Exam - Vital Signs Last Vital Signs Temp Pulse Resp BP Pulse Ox 100.0 F H 98 H 18 174/65 H 96 03/03/18 02:07 03/03/18 02:07 03/03/18 02:07 03/03/18 02:07 03/03/18 02:07 Moderate Sedation - Procedure Monitoring Vital Signs: Procedure Monitoring Vital Signs Temperature 100.0 F H 03/03/18 02:07 Pulse Rate 98 H 03/03/18 02:07 Respiratory Rate 18 03/03/18 02:07 Blood Pressure 174/65 H 03/03/18 02:07 O2 Sat by Pulse Oximetry (%) 96 03/03/18 02:07 ED Treatment Course - LABORATORY CBC & Chemistry Diagram: 03/03/18 05:10 03/03/18 05:10 - RADIOLOGY Radiology Studies Ordered: Category Date Time Status CHEST PA & LAT [RAD] Stat Radiology 03/03/18 03:38 Taken Medical Decision Making - Medical Decision Making 03/03/18 04:40 Patient is a 57-year-old female with history of DM, HTN, neuropathy, fibroid uterus, c/o lower abd/suprapubic pain, dysuria, frequency associated with 4 days, nausea, vomiting, fever, weakness and shortness of breath. He described as an aching in the suprapubic area and burning pain on urination, which is 8/ 10. Also c/o cough and sob with coughing. 1. Symptoms are consistent with a UTI 2. Cough and URI labs, ekg, IVF, pain meds reassess. 03/03/18 06:22 Call from lab, blood sugar 300+, no gap, will continue normal saline. Patient states feels better able to breath tolerating po. 03/03/18 06:[address] rate 103, LAD, (-) ST-Twave changes Noted to have wbc on UA, patient symptomtic will given Rocephin 1gm IV Endorsed to AM team pending meds, FS, disposition *DC/Admit/Observation/Transfer Diagnosis at time of Disposition: Hyperglycemia, Cough UTI (urinary tract infection) Qualifiers: Urinary tract infection type: site unspecified Hematuria presence: without hematuria Qualified Code(s): N39.0 - Urinary tract infection, site not specified - Discharge Dispostion Condition at time of disposition: Fair - Referrals Referrals: Koki Ayon MD [Primary Care Provider] - - Patient Instructions - Post Discharge Activity
[2018-03-03] MEDS ORDERED: PHENAZOPYRIDINE HCL 100 MG TABLET (FP) PO ONE (04:52)
[2018-03-03] MEDS ORDERED: KETOROLAC TROMETHAMINE 30 MG/1 ML VIAL ONE (04:55)
[2018-03-03] MEDS ORDERED: ONDANSETRON 4 MG/2 ML VIAL ONE ×2 (04:55→04:57)
[2018-03-03] MEDS ORDERED: PHENAZOPYRIDINE HCL 100 MG TABLET (FP) ONE (05:15)
[2018-03-03 05:16] LABS: MCH 26.7 pg (25.7-33.7); MCHC 31.4 g/dl (32.0-36.0); MEAN CELL VOLUME 85.1 fl (80-96); MEAN PLT VOLUME 10.7 fl (7.5-11.1); PLATELET COUNT 218 K/MM3 (134-434); RBC 4.11 M/mm3 (3.60-5.2); RDW 14.4 % (11.6-15.6); WHITE BLOOD COUNT 14.7 K/mm3 (4.0-10.0)
[2018-03-03 05:53] LABS: URINE APPEARANCE SLCLOUDY; URINE BILIRUBIN NEGATIVE (<2.0 mg/dL); URINE COLOR YELLOW; URINE GLUCOSE (UA) 3+ (NEGATIVE); URINE KETONE TRACE (NEGATIVE); URINE LEUK ESTERASE NEGATIVE (NEGATIVE); URINE NITRITE NEGATIVE (NEGATIVE); URINE PROTEIN 3+ (NEGATIVE); URINE UROBILINOGEN NEGATIVE mg/dL (0.2-1.0)
[2018-03-03 05:57] LABS: ALBUMIN 2.2 g/dl (3.4-5.0); ALK PHOS 100 U/L (45-117); ANION GAP 8 MMOL/L (8-16); BILIRUBIN,TOTAL 0.8 mg/dL (0.2-1); BLOOD UREA NITROGEN 16 mg/dL (7-18); CALCIUM 8.6 mg/dL (8.5-10.1); CHLORIDE 96 mmol/L (98-107); CO2 29 mmol/L (21-32); POTASSIUM 3.7 mmol/L (3.5-5.1); SGOT/AST 23 U/L (15-37); SGPT/ALT 11 U/L (13-61); SODIUM 133 mmol/L (136-145); TOT PROT 6.3 g/dl (6.4-8.2)
[2018-03-03 05:59] LABS: EPI CELLS RARE /HPF (FEW); URINE MUCUS RARE
[2018-03-03 06:08] LABS: GLUCOSE,RANDOM 332 mg/dL (74-106)
[2018-03-03] MEDS ORDERED: CEPHALEXIN MONOHYDRATE 500 MG CAPSULE (UD) PO ONE (06:24)
[2018-03-03] MEDS ORDERED: ACETAMINOPHEN 325 MG TABLET (FP) PO ONE (06:45)
[2018-03-03] MEDS ORDERED: CEFTRIAXONE 1,000 MG in DEXTROSE 5%-WATER - 50 ML IVPB ONE (06:46)
[2018-03-03] MEDS ORDERED: CEFTRIAXONE 1 GM/50 ML BAG ONE (07:00)
[2018-03-03] MEDS ORDERED: ACETAMINOPHEN 325 MG TABLET (FP) ONE (07:00)
--- NOTE | 2018-03-03 08:46 | PDOC ---
*Physical Exam - Vital Signs Last Vital Signs Temp Pulse Resp BP Pulse Ox 97.9 F 98 H 16 132/62 94 L 03/03/18 07:37 03/03/18 07:37 03/03/18 07:37 03/03/18 07:37 03/03/18 07:37 - Physical Exam General Appearance: Yes: Appropriately Dressed. No: Apparent Distress HEENT: positive: Normal Voice Neck: positive: Supple Respiratory/Chest: positive: Lungs Clear, Normal Breath Sounds. negative: Respiratory Distress Cardiovascular: positive: Regular Rate, S1, S2 Gastrointestinal/Abdominal: positive: Tender (to lower abd diffusely), Soft, Guarding. negative: Normal Bowel Sounds, Distended, Rebound Musculoskeletal: negative: CVA Tenderness Integumentary: positive: Dry, Warm Neurologic: positive: Fully Oriented, Alert, Normal Mood/Affect ED Treatment Course - LABORATORY CBC & Chemistry Diagram: 03/03/18 05:10 03/03/18 05:10 - ADDITIONAL ORDERS Additional order review: Laboratory Results 03/03/18 03/03/18 03/03/18 05:10 05:10 05:10 Sodium 133 L Potassium 3.7 Chloride 96 L Carbon Dioxide 29 Anion Gap 8 BUN 16 Creatinine 1.0 Creat Clearance w eGFR 57.15 Random Glucose 332 H* Calcium 8.6 Total Bilirubin 0.8 AST 23 ALT 11 L Alkaline Phosphatase 100 Creatine Kinase 148 Troponin I < 0.02 Total Protein 6.3 L Albumin 2.2 L Urine Color Yellow Urine Appearance Slcloudy Urine pH 5.0 Ur Specific [place] 1.028 Urine Protein 3+ H Urine Glucose (UA) 3+ H Urine Ketones Trace H Urine Blood 2+ H Urine Nitrite Negative Urine Bilirubin Negative Urine Urobilinogen Negative Ur Leukocyte Esterase Negative Urine WBC (Auto) 9 Urine RBC (Auto) 2 Ur Epithelial Cells Rare Urine Mucus Rare 03/03/18 05:10 RBC 4.11 MCV 85.1 MCHC 31.4 L RDW 14.4 MPV 10.7 - RADIOLOGY Radiology Studies Ordered: Category Date Time Status ABDOMEN & PELVIS CT WITH CONTR [CT] Stat CT Scan 03/03/18 08:45 Ordered - Medications Given in the ED: ED Medications Discontinued Medications Generic Name Dose Route Start Last Admin Trade Name Freq PRN Reason Stop Dose Admin Acetaminophen 650 mg 03/03/18 06:45 03/03/18 07:08 Tylenol - PO 03/03/18 06:46 650 mg ONCE ONE Administration Albuterol/Ipratropium 1 amp 03/03/18 03:39 03/03/18 03:40 Duoneb - NEB 03/03/18 03:40 1 amp ONCE ONE Administration Cephalexin HCl 500 mg 03/03/18 06:24 03/03/18 07:19 Keflex - PO 03/03/18 06:25 Not Given ONCE ONE Ceftriaxone Sodium 1,000 mg/ 50 mls @ 100 mls/hr 03/03/18 06:46 03/03/18 07: 08 Dextrose IVPB 03/03/18 07:15 100 mls/hr ONCE ONE Administration Ketorolac Tromethamine 30 mg 03/03/18 04:36 03/03/18 04:40 Toradol Injection - IVPUSH 03/03/18 04:37 30 mg ONCE ONE Administration Ondansetron HCl 4 mg 03/03/18 03:36 03/03/18 03:40 Zofran Injection IVPUSH 03/03/18 03:37 4 mg ONCE ONE Administration Phenazopyridine HCl 200 mg 03/03/18 04:52 03/03/18 05:18 Pyridium - PO 03/03/18 04:53 200 mg ONCE ONE Administration Sodium Chloride 1,000 ml 03/03/18 03:36 03/03/18 03:15 Normal Saline - IV 03/03/18 03:37 1,000 ml ONCE ONE Administration Sodium Chloride 1,000 ml 03/03/18 06:12 03/03/18 07:07 Normal Saline - IV 03/03/18 06:13 1,000 ml ONCE ONE Administration Medical Decision Making - Medical Decision Making 03/03/18 08:45 Patient signed out to me at 7 AM Patient is a 57-year-old female with history of IDDM, HTN, fibroid uterus, comes in with lower abdominal pain with possible dysuria, nausea, vomiting and fever x several days. Labs remarkable for white count of 14, and blood glucose of 332, no gap. UA w/ glu, bld, protein and ketones. No e/o infxn on UA though pt has since been given dose of rocephin by prior team. On reassessment now patient significantly tender to LLQ. Will get CT r/o diverticulitis, consider renal stone as well 03/03/18 10:29 CT read as patchy splenic perfusion, which could possibly be due to early injection phase versus possible splenic infarcts. Also seen is a slightly thickened gallbladder, but no obvious stones. "Markedly enlarged" fibroid uterus that appears worse than prior imaging. Of note, patient has no upper abdominal pain and is only tender to lower abdomen diffusely. pain may be 2/2 fibroids but will get ultrasound, r/o acute dang, though low clinical suspicion 03/03/18 12:58 US read as contracted gallbladder with cholelithiasis. No evidence of infection at this time. Patient currently pain-free. Will dc with [facility] follow- up for management of fibroids. Final fingerstick 119. Rpt vitals improved. Patient to follow up with her PMD to discuss further management of her diabetes *DC/Admit/Observation/Transfer Diagnosis at time of Disposition: Hyperglycemia, Cough Fibroid, uterine Qualifiers: Uterine leiomyoma location: unspecified location Qualified Code(s): D25.9 - Leiomyoma of uterus, unspecified Gallstone Qualifiers: Cholecystitis presence: without cholecystitis Biliary obstruction: without biliary obstruction Qualified Code(s): K80.20 - Calculus of gallbladder without cholecystitis without obstruction - Discharge Dispostion Disposition: HOME Condition at time of disposition: Improved - Referrals Referrals: Koki Ayon MD [Primary Care Provider] - - Patient Instructions Printed Discharge Instructions: Uterine Fibroids Additional Instructions: Your CAT scan here shows that you have a very enlarged uterus secondary to fibroids. Take Tylenol or Motrin as needed for pain and follow-up with your [facility] to discuss further management. Your sugar was elevated here. Continue your insulin and follow-up with your PMD this week for better management of your diabetes Print Language: PANAMANIAN - Post Discharge Activity
--- NOTE | 2018-03-03 09:48 | EKG ---
Test Reason : Blood Pressure : / mmHG Vent. Rate : 103 BPM Atrial Rate : 103 BPM P-R Int : 140 ms QRS Dur : 082 ms QT Int : 348 ms P-R-T Axes : 051 -18 040 degrees QTc Int : 455 ms SINUS TACHYCARDIA NONSPECIFIC ST ABNORMALITY ABNORMAL ECG WHEN COMPARED WITH ECG OF 12-DEC-2017 16:20, NO SIGNIFICANT CHANGE WAS FOUND Confirmed by SEUN GASPAR MD ([id number]) on 03/03/2018 9:47:42 AM Referred By: Confirmed By:SEUN GASPAR MD
[2018-03-03] MEDS ORDERED: INSULIN REGULAR HUMAN 100 UNITS/ML *VIAL IVPUSH ONE (10:10)
[2018-03-03] MEDS ORDERED: INSULIN REGULAR HUMAN 100 UNITS/ML *VIAL ONE (10:31)
[2018-03-03 13:36] VITALS: BP 130/64; PULSE 82; TEMP 97.6
== END 2018-03-03 13:35 | disposition home or self-care (01) ==
LOC: JER 02:03
PROC: 3E0F7GC Introduction of Other Therapeutic Substance into Respiratory Tract, Via Natural or Artificial Opening (ICD-10-PCS; principal; 2018-03-03)
PROC: 3E03329 Introduction of Other Anti-infective into Peripheral Vein, Percutaneous Approach (ICD-10-PCS; 2018-03-03)
PROC: 3E0333Z Introduction of Anti-inflammatory into Peripheral Vein, Percutaneous Approach (ICD-10-PCS; 2018-03-03)
PROC: 3E033GC Introduction of Other Therapeutic Substance into Peripheral Vein, Percutaneous Approach (ICD-10-PCS; 2018-03-03)
DX: N39.0 Urinary tract infection, site not specified (principal); E11.65 Type 2 diabetes mellitus with hyperglycemia; J06.9 Acute upper respiratory infection, unspecified; K80.20 Calculus of gallbladder without cholecystitis without obstruction; D25.9 Leiomyoma of uterus, unspecified; I10 Essential (primary) hypertension; Z79.4 Long term (current) use of insulin; Z79.84 Long term (current) use of oral hypoglycemic drugs
CPT/HCPCS: 36415; 71046-TC-FY; 74177-TC; 76705-TC; 80053; 81003; 81015; 82550; 82962; 84484; 85027; 87086; 87186; 87804; 93005; 93010; 94640; 96365; 96375; 99285-25